=== PATIENT | male | born 1975 | race Caucasian/White ===

== ENCOUNTER → 2023-08-10 09:51 | Outpatient (REF) | payer OTHER, SELFPAY | LOC: RCS 09:51 | PROVIDERS: ATTENDING PHYSICIAN Internal Medicine Cardiovascular Disease; FAMILY PHYSICIAN Internal Medicine | DX: I48.0 Paroxysmal atrial fibrillation (principal); I44.4 Left anterior fascicular block; R07.89 Other chest pain | CPT/HCPCS: 93017 ==

== ENCOUNTER → 2023-09-13 08:12 | Outpatient (REF) | payer OTHER, SELFPAY | LOC: RCS 08:12 | PROVIDERS: ATTENDING PHYSICIAN Internal Medicine Cardiovascular Disease; FAMILY PHYSICIAN Internal Medicine | DX: I48.0 Paroxysmal atrial fibrillation (principal); I44.4 Left anterior fascicular block; R07.89 Other chest pain | CPT/HCPCS: 93306 ==

== ENCOUNTER → 2023-10-10 07:50 | Outpatient (REF) | payer OTHER, SELFPAY | LOC: MRI 3T 07:50 | PROVIDERS: ATTENDING PHYSICIAN Internal Medicine Gastroenterology; FAMILY PHYSICIAN Internal Medicine | DX: K50.018 Crohn's disease of small intestine with other complication (principal) | CPT/HCPCS: 72197; 74183; A9575 ==

== ENCOUNTER → 2024-04-05 12:38 | Outpatient (REF) | payer OTHER, SELFPAY | LOC: RAD 12:38 | PROVIDERS: ATTENDING PHYSICIAN Nurse Practitioner | DX: M25.572 Pain in left ankle and joints of left foot (principal) | CPT/HCPCS: 73610 ==